=== PATIENT | male | born 2000 | race Caucasian/White ===

== ENCOUNTER 2021-11-18 18:50 | Emergency (ER) | payer BC ==
[~2021-11-18 18:50] MED LIST: Iopamidol 300 61% 100 ML VIAL FS ONE
[2021-11-18 19:57] LABS: #Eosinphils 0.1 10x3/uL (0.0-0.5); #Monocytes 0.9 10x3/uL (0.0-1.1); #Neutrophils 4.3 10x3/uL (1.5-8.4); %Basophils 0.6 % (0.0-2.0); %Eosinophils 1.8 % (0.0-6.0); %Lymphocytes 20.7 % (18.0-47.0); %Monocytes 13.2 % (0.0-10.0); %Neutrophils 63.1 % (40.0-75.0); Mean Corpuscular HGB CONC 34.4 g/dL (32.0-36.0); Mean Corpuscular Volume 84.2 fl (81.2-95.1); Mean Platelet Volume 9.5 fl (7.4-10.4); Platelet Count 250 10x3/uL (150-450); RBC Distribution Width 12.8 % (11.5-14.5); Red Blood Cell (RBC) Count 5.52 10x6/uL (4.32-5.72); White Blood Cell (WBC) Count 6.8 10x3/uL (3.5-10.5)
[2021-11-18 20:11] LABS: Bilirubin Neg (Negative); Blood, Urine Negative (Negative); Clarity Clear (Clear); Glucose, Urine (Dipstick) Normal (Negative); Ketone, Urine Negative (Negative); Leukocyte Negative (Negative); Nitrite Negative (Negative); Protein, Urine (Dipstick) Negative (Neg-Trace); Specific Gravity, Urine 1.005 (1.002-1.036); Urobilinogen Normal mg/dL (Less than 2); pH, Urine 6.5 (5.0-9.0)
[2021-11-18 20:13] LABS: ALT (SGPT) 25 U/L (8-55); AST (SGOT) 29 U/L (5-34); Albumin 4.8 g/dL (3.5-5.0); Alkaline Phosphatase 73 U/L (40-110); Anion Gap 16 mmol/L (10-20); BUN (Urea Nitrogen) 8 mg/dL (8.9-20.6); Bilirubin, Total 0.9 mg/dL (0.2-1.2); Calc. Creatinine Clearance 0 mL/min (70-130); Carbon Dioxide 27 mmol/L (22-29); Chloride 101 mmol/L (98-107); Estimated GFR 129; Globulin 3.1 g/dL (2.4-3.5); Glucose 133 mg/dL (70-105); Lipase 29 U/L (8-78); Potassium 4.8 mmol/L (3.5-5.1); Protein, Total 7.9 g/dL (6.0-8.3); Sodium 139 mmol/L (136-145)
[2021-11-18] MEDS ORDERED: Ketorolac Tromethamine 30 MG/ML VIAL ONE (21:10)
== END 2021-11-18 23:45 | disposition home or self-care (01) ==
LOC: CSHERS 18:50
DX: K52.9 Noninfective gastroenteritis and colitis, unspecified (principal)
CPT/HCPCS: 36415; 74177; 80053; 81003; 83690; 85025; 96374; J1885; Q9967